=== PATIENT | female | born 1945 | race Caucasian/White ===

== ENCOUNTER 2022-12-31 07:28 | Day surgery (SDC) | payer MEDICARE, SELFPAY ==
[2022-12-26 09:27] VITALS: BMI 22.5
--- NOTE | 2022-12-27 13:17 | MHC.SHP ---
Pre-Procedural Eval Section A Date of Service: 12/27/22 The patient is an INPATIENT: No Changes since office visit: No Cold of Flu in the past 2 weeks, No New Medical Problems, No Changes in Medication and No Patient answered all questions The History & Physical has been completed within 30 days and I have reviewed it.: Yes Section B Chief Complaint: Age-related nuclear cataract, right eye Allergies: Allergies Allergy/AdvReac Type Severity Reaction Status Date / Time penicillin V Allergy Unknown Rash Verified 12/25/22 17:31 cefdinir Allergy Unknown Verified 12/25/22 17:31 duloxetine Allergy Unknown Verified 12/25/22 17:31 alendronate sodium AdvReac Gastrointestinal Verified 12/25/22 17:31 Upset ibuprofen AdvReac Gastric Verified 12/25/22 17:31 Ulcer Plan Diagnosis/Plan: Unchanged I have reviewed the history and physical and performed a pertinent physical examination on my patient. No changes have occurred unless specified. Time Spent With Patient Time: Total time managing care of this patient today ____ minutes.
--- NOTE | 2022-12-28 09:53 | P.CONAN_ITS ---
Documented by User: Anabel Cooper NP 12/28/22 09:54 HPI - Anesthesia Eval Consult details Narrative: 77yo F for Right Cataract Extraction IOL Insertion PCP cleared No previous cataract PMFSH Past Medical History Medical History (Updated 12/31/22 @ 08:24 by Samantha Nugent MD) Abnormal gait Anxiety Aortic valve insufficiency Ataxia Congenital renal cyst Depression Dilated bile duct Fibromyalgia Generalized anxiety disorder with panic attacks GERD (gastroesophageal reflux disease) History of breast cancer History of COVID-19 History of DVT of lower extremity History of Guillain-Casmalia syndrome Hx of herpes zoster Hx of osteopenia Hypermagnesemia IBS (irritable bowel syndrome) Lacunar infarction [facility] (current) use of opiate analgesic Lymphocytic colitis Mild mitral insufficiency Osteoporosis Restless leg syndrome Thrombocytopenia TIA (transient ischemic attack) Trochanteric bursitis Urinary incontinence Surgical History Surgical History History of arthroplasty of right shoulder History of bilateral total hip arthroplasty History of esophagogastroduodenoscopy (EGD) Hx of colonoscopy Hx of hysterectomy Hx of right mastectomy Hx of spinal fusion Status post closed reduction of dislocated total hip prosthesis Social History Social History Are you a primary healthcare network consultant to a significant other at home: No Do you presently have visiting nurse or other home services: No Patient Tobacco Use Status: Never used Tobacco Use of substances other than those prescribed or required for medical reasons: No Have you been hit, kicked, punched, or otherwise hurt by someone within the past year? If so, by whom?: No Advance Directives: No Advance Directives Information Provided: Yes Advance Directives on File: No Recently lost weight without trying: No Eating poorly because of decreased appetite: No Nutrition Risks: No Nutritional Risk Poor oral hygiene: No Meds Allergies Allergy/AdvReac Type Severity Reaction Status Date / Time penicillin V Allergy Unknown Rash Verified 12/31/22 07:55 cefdinir Allergy Unknown Verified 12/31/22 07:55 duloxetine Allergy Unknown Verified 12/31/22 07:55 alendronate sodium AdvReac Gastrointestinal Verified 12/31/22 07:55 Upset ibuprofen AdvReac Gastric Verified 12/31/22 07:55 Ulcer Home Medications Medication Instructions Recorded Confirmed Last Taken Type acetaminophen 325 mg tablet 650 mg PO QID 12/25/22 12/26/22 Unknown History ascorbic acid (vitamin C) 500 mg 500 mg PO DAILY 12/25/22 12/26/22 Unknown History tablet,extended release (Vitamin C ER) escitalopram oxalate 10 mg tablet 10 mg PO DAILY 12/25/22 12/26/22 12/31/22 05:00 History gabapentin 600 mg tablet 600 mg PO BID 12/25/22 12/26/22 12/31/22 05:00 History lorazepam 1 mg tablet 1 mg PO DAILY PRN Anxiety 12/25/22 12/25/22 Unknown History omeprazole 20 mg capsule,delayed 20 mg PO BID PRN Acid Reflux 12/25/22 12/26/22 Unknown History release oxycodone 10 mg tablet 10 mg PO Q4H PRN Pain 12/25/22 12/26/22 12/31/22 05:00 History prednisone 5 mg tablet 5 mg PO QAM 12/25/22 12/26/22 12/31/22 05:00 History rosuvastatin 10 mg tablet 10 mg PO DAILY 12/25/22 12/26/22 12/31/22 05:00 History calcium carbonate 600 mg-vitamin 1 tab PO DAILY 12/26/22 12/26/22 Unknown History D3 10 mcg (400 unit) tablet (Calcium 600 + D(3)) quetiapine 25 mg tablet 25 mg PO BEDTIME 12/26/22 12/26/22 Unknown History Exam Exam Date and Time: December 28, 2022 0953 Height,Weight and Vital Signs: Height 5 ft 5 in Weight 61.235 kg Assessment and Plan Assessment Anesthesia Assessment: Chart Reviewed Documented by User: Samantha Nugent MD 12/31/22 08:29 [facility] Past Medical History Medical History (Updated 12/31/22 @ 08:24 by Samantha Nugent MD) Abnormal gait Anxiety Aortic valve insufficiency Ataxia Congenital renal cyst Depression Dilated bile duct Fibromyalgia Generalized anxiety disorder with panic attacks GERD (gastroesophageal reflux disease) History of breast cancer History of COVID-19 History of DVT of lower extremity History of Guillain-Casmalia syndrome Hx of herpes zoster Hx of osteopenia Hypermagnesemia IBS (irritable bowel syndrome) 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 Lymphocytic colitis Mild mitral insufficiency Osteoporosis Restless leg syndrome Thrombocytopenia TIA (transient ischemic attack) Trochanteric bursitis Urinary incontinence Family History Family history of problems with anesthesia: No Surgical History Surgical History History of arthroplasty of right shoulder History of bilateral total hip arthroplasty History of esophagogastroduodenoscopy (EGD) Hx of colonoscopy Hx of hysterectomy Hx of right mastectomy Hx of spinal fusion Status post closed reduction of dislocated total hip prosthesis History of Problems with Anesthesia: No Social History Social History Are you a primary healthcare network consultant to a significant other at home: No Do you presently have visiting nurse or other home services: No Patient Tobacco Use Status: Never used Tobacco Use of substances other than those prescribed or required for medical reasons: No Have you been hit, kicked, punched, or otherwise hurt by someone within the past year? If so, by whom?: No Advance Directives: No Advance Directives Information Provided: Yes Advance Directives on File: No Recently lost weight without trying: No Eating poorly because of decreased appetite: No Nutrition Risks: No Nutritional Risk Poor oral hygiene: No Meds Allergies Allergy/AdvReac Type Severity Reaction Status Date / Time penicillin V Allergy Unknown Rash Verified 12/31/22 07:55 cefdinir Allergy Unknown Verified 12/31/22 07:55 duloxetine Allergy Unknown Verified 12/31/22 07:55 alendronate sodium AdvReac Gastrointestinal Verified 12/31/22 07:55 Upset ibuprofen AdvReac Gastric Verified 12/31/22 07:55 Ulcer Home Medications Medication Instructions Recorded Confirmed Last Taken Type acetaminophen 325 mg tablet 650 mg PO QID 12/25/22 12/26/22 Unknown History ascorbic acid (vitamin C) 500 mg 500 mg PO DAILY 12/25/22 12/26/22 Unknown History tablet,extended release (Vitamin C ER) escitalopram oxalate 10 mg tablet 10 mg PO DAILY 12/25/22 12/26/22 12/31/22 05:00 History gabapentin 600 mg tablet 600 mg PO BID 12/25/22 12/26/22 12/31/22 05:00 History lorazepam 1 mg tablet 1 mg PO DAILY PRN Anxiety 12/25/22 12/25/22 Unknown History omeprazole 20 mg capsule,delayed 20 mg PO BID PRN Acid Reflux 12/25/22 12/26/22 Unknown History release oxycodone 10 mg tablet 10 mg PO Q4H PRN Pain 12/25/22 12/26/22 12/31/22 05:00 History prednisone 5 mg tablet 5 mg PO QAM 12/25/22 12/26/22 12/31/22 05:00 History rosuvastatin 10 mg tablet 10 mg PO DAILY 12/25/22 12/26/22 12/31/22 05:00 History calcium carbonate 600 mg-vitamin 1 tab PO DAILY 12/26/22 12/26/22 Unknown History D3 10 mcg (400 unit) tablet (Calcium 600 + D(3)) quetiapine 25 mg tablet 25 mg PO BEDTIME 12/26/22 12/26/22 Unknown History Exam Height,Weight and Vital Signs: Height 5 ft 5 in Weight 61.235 kg Vital Signs Temp Pulse Resp BP Pulse Ox O2 Del Method 12/31/22 08:10 97.8 F 59 16 150/65 H 94 Room Air Airway Mallampati Class: II TM Dist: >3cm Neck ROM: Full Loose/Missing/Broken Teeth: No (Denies broken, loose, missing teeth or dentures) Heart: RRR Lungs: CTAB Assessment and Plan Assessment Anesthesia Assessment: Anesthesia Plan Discussed Final Anesthetic Review Family History of Problems with Anesthesia: No History of Problems with Anesthesia: No NPO: Yes ASA Class: III Final Preanesthetic Review: No Changes in Pt Med Stat, Meds/Allgs Chart Reviewed, Consent Obtained/Reviewed and Anes Risks/Benef Reviewed Patient Risk: Intermediate Procedure Risk: Low Assessment/Block/Sedation in SS: Assess/Block/Sedation-SS Anesthetic Plan Anesthetic Plan: MAC: Disposition: Standard PACU
[2022-12-31] MEDS: Tetracaine HCl/PF 0.5% Oph Sol 4 ML DROPS 1 DROP EYE-RIGHT (08:08)
[2022-12-31 08:10] VITALS: BP 150/65; PULSE 59; RESP 16; TEMP 36.6; O2SAT 94
[2022-12-31] MEDS: Cyclopentolate 1 % Ophth Sol 2 ML DRPBTL 1 DROP EYE-RIGHT ×3 (08:11→08:24)
[2022-12-31] MEDS: Ketorolac Tromethamine 0.5% Op 5 ML DROPS 1 DROP EYE-RIGHT ×3 (08:13→08:27)
[2022-12-31] MEDS: Phenylephrine HCL 2.5% Oph SoL 2 ML BOTTLE 1 DROP EYE-RIGHT ×3 (08:15→08:28)
[2022-12-31] MEDS: Lactated Ringers 500 ML 50 ML IV (08:28)
--- NOTE | 2022-12-31 09:29 | HO.PNOPHT ---
Ophthalmology Procedure Procedure Date of Service: 12/31/22 Ophthalmology Viscoelastic: Healon Duet Dual Pack Pro Ophthalmology Lenses: TECNIS [id number] (20.5) Procedure Notes: PREOPERATIVE DIAGNOSIS: Decreased visual acuity right eye secondary to cataract POSTOPERATIVE DIAGNOSIS: Same PROCEDURE: Right cataract extraction with intraocular lens insertion SURGEON: Praneeth Gary M.D. ANESTHESIA: Topical/MAC ESTIMATED BLOOD LOSS: None COMPLICATIONS: None After obtaining informed consent, the patient was brought to the operating room suite and placed in the supine position. After adequate sedation per anesthesia, topical drops of Tetracaine were given to the right eye. The eye was then prepped and draped in the usual sterile fashion. The operating room microscope was then positioned over the operative eye and a lid speculum placed. A paracentesis was created. Viscoelastic was then instilled into the anterior chamber. A three plane incision was then created temporally, utilizing a 2.85 mm keratome. Capsulotomy forceps were then utilized to create a circular tear capsulotomy. Hydrodissection and hydrodelineation were carried out until adequate mobilization of the nucleus occurred. Phacoemulsification was then utilized to remove the dense central nucleus followed by removal of the cortical material utilizing the automated aspiration irrigation unit. Viscoelastic was instilled into the posterior capsular bag followed by placement of a posterior chamber intraocular lens without difficulty. The residual Viscoelastic was then removed utilizing the automated IA machine. The wound was checked and found to be watertight. The patient tolerated the procedure well and the lid speculum was removed. Intracameral injection of Vigamox 0.1 mL followed by a subtenon injection of Kenalog-40 0.2 mL were administered. The patient will be seen in the a.m.
[2022-12-31 09:55] VITALS: BP 107/58; PULSE 66; RESP 16; TEMP 36.5; O2SAT 95
== END 2022-12-31 10:08 | disposition home or self-care (01) ==
PROVIDERS: PCP Family Medicine; Visit Provider Ophthalmology
PROC: (CPT 66985; principal; 2022-12-31 09:30)
DX: H25.11 Age-related nuclear cataract, right eye (principal); H52.4 Presbyopia; H18.423 Band keratopathy, bilateral; H18.413 Arcus senilis, bilateral; H11.153 Pinguecula, bilateral; M79.7 Fibromyalgia; F41.1 Generalized anxiety disorder; Z79.52 Long term (current) use of systemic steroids; Z79.899 Other long term (current) drug therapy; Z88.0 Allergy status to penicillin; Z88.8 Allergy status to other drugs, medicaments and biological substances; Z96.641 Presence of right artificial hip joint; Z87.891 Personal history of nicotine dependence
CPT/HCPCS: 66984; J2250; J3010; J3301; V2632